=== PATIENT | female | born 2000 | race Caucasian/White ===

== ENCOUNTER 2022-12-20 14:29 | Emergency (ER) | payer OTHER, SELFPAY ==
[2022-12-20 14:44] VITALS: BP 138/82; PULSE 89; RESP 20; TEMP 36.7; O2SAT 18; BMI 23.5
[2022-12-20 15:13] LABS: Appearance Urine Clear (Clear); Bilirubin Urine Negative (Negative); Blood Urine Negative (Negative); Color Urine Yellow (Yellow); Glucose Urine 2+ (Negative); Ketones Urine Trace (Negative); Leukocyte Esterase Urine Negative (Negative); Nitrite Urine Negative (Negative); Protein Urine Negative (Negative); Specific Gravity Urine <= 1.005 (1.000-1.030); Urobilinogen Urine 0.2 (0.2-1.0)
[2022-12-20 15:34] LABS: RBC Urine 0-2 (0-2); WBC Urine 0-2 (0-5)
--- NOTE | 2022-12-20 16:04 | ED.GENADULT ---
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 Patient notes that in spite of multiple insulin boluses she has been experiencing blood sugars that have actually been rising and at last check was in the upper 400s. Along with this she is feeling somewhat fatigued and has some abdominal discomfort and nausea. She denies any vomiting. She has not been ill of late. She denies cough cold dysuria hematuria possibility of . She has not had fevers. She is due to change her insulin catheter tomorrow. She has not noticed any redness around the insertion site. Our Accu-Chek is similar. Patient does note that her insulin had been left outside. Perhaps questionable and environmental ir sun exposure. Related Data Home Medications Medication Instructions Recorded Confirmed glucagon 3 mg/actuation nasal mg intranasal 12/20/22 spray (Baqsimi) insulin lispro 100 unit/mL 1 sliding scale dose subcut 12/20/22 subcutaneous solution (Humalog U-100 Insulin) Allergies Allergy/AdvReac Type Severity Reaction Status Date / Time Sulfa (Sulfonamide Allergy Verified 12/20/22 14:51 Antibiotics) Review of Systems Status of ROS: Reports: 10 or more systems reviewed and unremarkable except as noted in History and below Const: Denies: fever, chills or change in weight Eyes: Denies: change in vision ENMT: Denies: throat pain or neck pain Cardio: Denies: chest pain, palpitations, swelling of feet/ankles, lightheadedness or shortness of breath with exertion Resp: Denies: shortness of breath, cough or wheezing GI: Reports: abdominal pain and nausea; Denies: vomiting or diarrhea : Denies: painful urination or urinary frequency Musculo: Denies: neck pain Integ/Breast: Denies: rash Neuro: Denies: headache or numbness in extremities Endo: Denies: excessive urination Allergy/Immuno: Denies: wheezing PFSH PFSH Social History Smoking Status: Never smoker Do you use any of these nicotine containing products: None How often do you have a drink containing alcohol: never AUDIT-C Alcohol total score: 0 Non-prescribed substance use: denies use Exam Narrative: Exam Narrative: Patient is alert and oriented. Very pleasant young woman. She does look fatigued but nontoxic in appearance. Eyes are clear. Oral cavity with moist mucous membranes neck without lymphadenopathy. Heart with a regular rate and rhythm. Lungs are clear bilaterally. Abdomen soft nontender. Lower extremities without edema. Moving all extremities. Const: Vital Signs, click to edit/add: Vital Signs - 24 hr 12/20/22 14:44 Temperature 98.1 F Pulse Rate [Pulse Oximeter] 89 Respiratory Rate 20 Blood Pressure [Ri ght Upper Arm] 138/82 Pulse Oximetry 18 L Oxygen Delivery Me thod Room Air Documenting provider has reviewed patient's vital signs: yes Course Course Hospital Course: Differential diagnosis includes DKA, insulin catheter malfunction, glucose monitor malfunction, infection. Patient will have CBC, comprehensive panel, urinalysis and immediate glucose check. Glucose check is elevated in the low 400s and patient notes her check is greater than 500 and thus will give 10 units regular insulin. As well as normal saline. Will have patient disconnect her insulin pump at this time as I am fearful that it is malfunctioning and will give a sudden bolus. She will obtain new catheter for insertion later this evening. Reevaluation(s) Reevaluation #1: Note vault lab glucose comes back at 296 and we with modified or order of regular insulin from 10 units to 6 units at this time. Reevaluation #2: Patient noted to have glucose dropped to 230. Will have her reinsert a new insulin catheter and monitor here for period of time. Reevaluation #3: Glucose drops to 125 and this is consistent both on her monitor as well as our Accu-Chek. She is given something to eat. We will continue to monitor to make sure that blood sugars are stable. Labs are reassuring. Vital Signs Vital signs: Initial Vital Signs Temperature 98.1 F 12/20/22 14:44 Temperature Source Temporal Artery Scan 12/20/22 14:44 Pulse Rate 89 12/20/22 14:44 Pulse Rhythm Regular 12/20/22 14:44 Respiratory Rate 20 05/01/23 14:44 Blood Pressure 138/82 12/20/22 14:44 Blood Pressure Mean 100 12/20/22 14:44 Blood Pressure Position Sitting 12/20/22 14:44 Pulse Oximetry 18 L 12/20/22 14:44 Oxygen Delivery Method Room Air 12/20/22 14:44 Vital Signs Temperature 98.1 F 12/20/22 14:44 Pulse Rate 89 12/20/22 14:44 Respiratory Rate 20 12/20/22 14:44 Blood Pressure 138/82 12/20/22 14:44 Pulse Oximetry 18 L 12/20/22 14:44 Oxygen Delivery Method Room Air 12/20/22 14:44 Temperature 98.1 F 12/20/22 14:44 Pulse Rate 89 12/20/22 14:44 Respiratory Rate 16 12/20/22 19:34 Blood Pressure 101/67 12/20/22 19:34 Pulse Oximetry 18 L 12/20/22 14:44 Oxygen Delivery Method Room Air 12/20/22 14:44 Medical Decision Making MDM Narrative Medical decision making narrative: 1. Hyperglycemia-I am unsure if this is a malfunction of the insulin catheter verses insulin that was left out and separate environmental effects. Fortunately although patient had 2+ ketones no evidence of abnormal labs. She is feeling better at this time and we have monitored her and insulin pump and glucose monitor appear to be working correctly at this time. She is ready to go home. Would ask her to continue to monitor closely and of course return for any worsening symptoms. Would have her use a new batch of insulin as well. 2. Disposition-home. Return as needed for worsening symptoms. Dictation done with voice recognition, and as a result, wrong word or venuh-y-oewd substitutions may have occurred.? There may be errors in the script that have gone undetected.? Please consider this when interpreting information found in this chart. Medical Records Medical records reviewed: Yes I reviewed the patient's medical records Lab Data Lab results reviewed: Yes I reviewed the patient's lab results Labs: Lab Results 12/20/22 12/20/22 Range/Units 15:00 16:40 WBC 8.55 (4.50-11.00) K/uL RBC 4.05 (4.00-5.20) m/uL Hgb 12.6 (12.0-16.0) gm/dL Hct 37.4 (33.0-51.0) % MCV 92 (80-100) fL MCH 31 (26-34) pg MCHC 34 (32-36) gm/dL RDW Coeff of Shai 12.5 (11.5-15.5) % Plt Count 194 (140-440) K/uL Neut % (Auto) 71.6 (42.0-72.0) % Lymph % (Auto) 19.3 L (20-44) % Roberts % (Auto) 7.4 (0.0-11.0) % Eos % (Auto) 1.2 (0.0-7.0) % Baso % (Auto) 0.4 (0.0-3.0) % Neut # (Auto) 6.13 (1.7-7.0) K/uL Lymph # (Auto) 1.70 (0.90-2.90) K/uL Roberts # (Auto) 0.60 (0.00-0.90) K/UL Eos # (Auto) 0.10 (0.00-0.50) K/uL Baso # (Auto) 0.03 (0.00-0.30) K/uL Sodium 135 (135-149) mmol/L Potassium 4.4 (3.6-5.1) mmol/L Chloride 101 (96-114) mmol/L Carbon Dioxide 27 (20-32) mmol/L BUN 20 (5-24) mg/dL Creatinine 0.6 (0.5-1.5) mg/dL Estimated Creat Clear 129.15 Estimated GFR 132 ml/min Glucose 296 H (60-115) mg/dL Calcium 9.2 (8.4-10.6) mg/dL Total Bilirubin 0.5 (0.1-1.5) mg/dL AST 41 H (12-35) U/L ALT 31 (4-35) U/L Alkaline Phosphatase 57 (40-150) U/L Total Protein 7.5 (6.0-8.3) g/dL Albumin 4.7 (3.3-5.0) g/dL Urine Color Yellow (Yellow) Urine Appearance Clear (Clear) Urine pH 6.0 (5.0-8.5) Ur Specific [place] <= 1.005 (1.000-1.030) Urine Protein Negative (Negative) Urine Glucose (UA) 2+ A (Negative) Urine Ketones Trace A (Negative) Urine Blood Negative (Negative) Urine Nitrite Negative (Negative) Urine Bilirubin Negative (Negative) Urine Urobilinogen 0.2 (0.2-1.0) Ur Leukocyte Esterase Negative (Negative) Urine RBC 0-2 (0-2) Urine WBC 0-2 (0-5) Ur Squamous Epith Cells None (None-Few) Urine Bacteria None (None) Discharge Plan Discharge Clinical Impression: Hyperglycemia Patient Disposition: Home, Self-Care Condition: Improved Instructions: Diabetic Hyperglycemia (ED) Additional Instructions: Continue to monitor blood sugars. Return for worsening symptoms. Suggest use of new insulin as warmth and sunlight can break insulin down. Prescriptions: No Action Baqsimi 3 mg/actuation spray,non-aerosol INTRANASAL Patient Comments: [NO ORIGINAL SIG] insulin lispro [Humalog U-100 Insulin] 100 unit/mL solution 1 sliding scale dose subcut Follow Up/Referrals: Provider,Not a Local [Primary Care Provider] - Stand Alone Forms: MyHealth Info Instructions
--- OUTSIDE RECORDS SUMMARY | 2022-12-20 16:32 | XMS_ITS | Continuity of Care Document ---
Author Name Unknown Address [address] [place] [address] Phone Organization [facility] Address [address] [place] [address] Phone Support Name Relationship Address Phone MD Lewis Lao Attending Provider [address] [place] [address] MD Claudia Murray Primary Care Provider [address] [place] [phone] Chief Complaint and Reason for Visit Chief Complaint Right Knee LMT Allergies, Adverse Reactions, Alerts Allergen Type Severity Reaction Last Updated Verified Status Sulfa (Sulfonamide Antibiotics) Allergy Moderate Rash March 11, 2022 10:33am Yes Active Social History Smoking Status Status Start Date End Date Date of Observa tion Unknown if ever smoked March 11, 2022 10:19am Observation Status Date of Observation Not March 11, 2022 Observation Status Observation Response Date of Response Is pt a current\former smoke r or user of tobacco products? No March 11, 2022 10:19am Does the patient use drugs? No March 16, 2022 6:36am On average how many days per week do you drink alcohol? 0 March 16, 2022 6:36am Additional Data Assigned Sex Female Medications Medication Status Dose Units Route Directions Qty Days St art Date End Date Instructions Insulin Aspart U-100 (Novolog U-100 Insulin Aspart) 100 unit/mL solution Active sliding scale dose SUB-Q Use as Directed March 11, 2022 12:00a m Blood-Gluco se Sensor (Dexcom G6 Sensor) device Active EACH MISCELLANE March 11, 2022 12:00a m Blood Sugar Diagnostic (Onetouch Verio Test Strips) strip Active STRIP MISCELLANE March 11, 2022 12:00a m Insulin Pump Cart,Cont Bt-Cntr (Omnipod Dash Intro Kit (Gen 4)) Cartridge Active EACH SUB-Q March 11, 2022 12:00a m Tramadol Active 50 MG PO Q6H 15 March 15, 2022 12:00a m Procedures Procedure Date Performed Status Knee Arthroscopy (Right) March 16, 2022 2:25pm completed Relevant Diagnostic Tests and/or Laboratory Data Laboratory Results Test Date/Time Result Interpretation Reference Range Result Comment Performing Site Bedside Glucose March 16, 2022 8:58am 184 mg/dL 75-[address] [address] Vital Signs Vital Reading Result Reference Range Collection Date/Time Height 64 [in_i] March 11, 2022 10:30am Weight 61.30 kg March 11, 2022 10:30am Body Temperature 98.0 [degF] 97.5-99.3 March 16, 2022 10:00am Heart Rate 55 /min 60-90 March 16, 2022 10:40am Respiratory rate 16 /min 12-20 March 16, 2022 10:40am Oxygen saturation by Pulse oximetry 100 % 95-100 March 16, 2022 10:4 0am BP Systolic 115 mm[Hg] 100-160 March 16, 2022 10:40am BP Diastolic 62 mm[Hg] 60-90 March 16, 2022 10:40am Inhaled oxygen flow rate 3 L/min Feb 9:40am Advance Directives Advance Directive Response Recorded Date/ Time Does the patient have a Healthcare Proxy? No March 04, 2022 5:43pm Date Patient Queried 03/04/22 March 04, 2022 5:43pm Does pt. have a legal guardian? No March 04, 2022 4:15pm Date patient queried 03/04/22 March 04, 2022 4:15pm Insurance Providers Guarantor Ree Young Address [address] [place] [address] Contact Info. Home Phone: Payer Policy Id Coverage Id Subscriber's Name Subscriber Id Effective Date Expiration Date Triston GALINDO [id number] Donaldo Rea [id number] 2014 [employer] HMO POS [id number] Donaldo Rea [id number] Encounters Encounter Location(s) Arrival/Admit Date Discharge/Depart Date Provider([facility]) [facility] March 16, 2022 6:09am March 16, 2022 10:55am Lewis Lao MD Plan of Treatment Future Tests Future scheduled test information is unavailable Pending Tests Pending diagnostic test information is unavailable Future Visits Future appointment information is unavailable Referrals to Other Providers Reason for Referral Referral Start Date Provider Provider Contact Information Provider Address Claudia Murray Work Phone: [address] [place] [address] Future Procedures Procedure Name Scheduled Date Pre-Op Antibiotic Arthroscopy March 16, 2022 6:00am Consult to Physical Therapy March 16 7:24am Future Medications Future medication information is unavailable Patient Instructions [facility]: Anesthesia Post-Op erative Instructions [facility]: Crutches-Weight Bearing as Tolerated Goals Acute Goals Prepare patient for surgery * Verify required physcial preparations have been accomplished * Verify required procedures/tests have been completed * Verify required clinical documentation is available for review Report pain at tolerable lev el * Uses pain scale appropriately * Identify options for pain control - Analgesics - Narcotics - Non-medication measures Patient Participates in Care Decisions The patient participates in decisions affecting his/her plan of care. Demonstrates knowledge of pr ocedure The patient demonstrates knowledge of psychological and physiological responses to invasive procedure Patient is free from s/s of aquired inj The patient is free from signs and symptoms of acquired physican injury Patient is free from s/s of infection The patient is free from signs and symptoms of infection Patient returns to normother loulou The patient is at or returning to normothermia at the conclusion of the immediate postoperative period Patient receives tx for DVT The patient receives appropriate treatment for the prevention of DVT Patient is free from injury related to s The patient is free from injury related to care and handling of surgical specimens The pt's right to privacy is maintaned The patient's right to privacy is maintained General Surgery Discharge Ou tcomes Hospital Discharge Instructions Additional Instructions Lewis Lao MD [facility] [address] [place] [address] Tel. [phone] DISCHARGE INSTRUCTIONS for Patients Following Knee Arthroscopy 1. Call Dr. Lao???s office at [phone] to make a follow up appointment for 7-10 days from date of surgery. 2. Call Dr. Lao???s office for any questions or concerns. If Dr. Lao is not available, you will be put in touch with the surgeon building construction estimator. If you feel it is an emergency, go directly to the [facility] Emergency Room (ER) and they will make the appropriate contacts. 3. Watch for an elevated temperature of 101?? or higher, excessive bleeding or drainage from the wounds, numbness or tingling in the operative leg or persistent calf pain. Report this to Dr. Lao???s office for further instructions. 4. Keep wounds dry. A small amount of blood staining on the dressing is normal. Keep lacey wrap in place for two days (re-wrap twice daily). After two days, remove dressing and apply Band-Aids to wounds. You may have tapes on wounds instead of stitches do not remove these. You may shower after two days if no drainage from wounds. You may tub bathe after stitches are removed if present, or after one week. 5. Weight bearing status will be determined based on procedure performed. You will be instructed prior to discharge. 6. Take one aspirin daily unless you have ulcers or other sensitivity to this medication (i.e. aspirin allergy). 7. Use pain medication sparingly. It will work more effectively this way as your body will rapidly build up a tolerance to it. 8. Qualified persons may operate a motor vehicle when you can walk comfortably without crutches. 9. Apply ice to knee 20-30 minutes on then off for 30-60 minutes while awake (for two days). Elevate affected leg on 1-2 pillows as much as possible for the first two days. You may bend and straighten knee within the limits of comfort. Tighten thigh muscles and hold for 10 seconds - 10 times per hour. Ankle pumps 10 times per hour. You may have been prescribed an opioid as part of your pain treatment, which may be used following injury, surgery, or other health conditions. For your safety, DO NOT drive, ride a bike, swim unattended, or operate machinery, including power tools while on these medications.
--- OUTSIDE RECORDS SUMMARY | 2022-12-20 16:32 | XMS_ITS | Summary of Care ---
Author Name Unknown [facility] Address [address] [place] [address]- Phone [phone] Care Team Providers Care Adult Manager Name Role Phone RANDELL OZUNA MD Primary Care Physician ( [phone] Encounter CHB_CSN [id number] Date(s): 08/06/22 - 07/28/[address] [facility] [place] [address] [place] [address]- [phone] Attending Physician: BRAD MCCLOUD MD Referring Physician: RANDELL OZUNA MD Allergies, Adverse Reactions, Alerts Substance Reaction Severity Status sulfa drugs Swelling Moderate Active Medications Baqsimi Two Pack 3 mg nasal powder Dose: 3 mg, Nasal, 1time, Special Instructions: as needed for severe or unresponsive hypoglycemia.,Dispense Quantity: 3 EA, Refills: 3, Entered: 07/02/22 10:40:00 EST, [facility]) Start Date: 07/02/22 Status: Ordered DME Omnipod 5 G6 Pods (Gen 5) [facility] #: [id number] DME Omnipod 5 G6 Pods (Gen 5) [facility] #: [id number] Special Instructions: Use one and change every 72 hours. Dispense Quantity: 30 EA Refills: 3 See Instructions Start Date: 06/28/22 Status: Ordered HumaLOG 100 units/mL injectable solution See Instructions, Special Instructions: use as directed with insulin pump therapy up to 100 units per day, Dispense Quantity: 90 mL, Refills: 3, Entered: 06/30/22 16:08:00 EST, [facility] ([facility]) Start Date: 06/30/22 Status: Ordered Problem List Condition Effective Dates Status Health Status Inform ant Celiac disease(Confirmed) Active Type I diabetes mellitus uncontrolled(Confirmed) 1 Active 1Added by C
--- OUTSIDE RECORDS SUMMARY | 2022-12-20 16:32 | XMS_ITS | Summary of Care ---
Author Name Unknown Organization [facility] ([facility]icine) Address [id number] [place] [address] Encounter CHB_CSN [id number] Date(s): 05/29/20 - 05/29/20 [facility] (Medicine) [id number] [place] [address] [facility] Discharge Disposition: Discharge Attending Physician: BRAD MCCLOUD MD Referring Physician: KRUPA CASTRO MD Allergies, Adverse Reactions, Alerts Substance Reaction Severity Status sulfa drugs Swelling Moderate Active Problem List Condition Effective Dates Status Health Status Inform ant Celiac disease(Confirmed) Active Type I diabetes mellitus uncontrolled(Confirmed) 1 Active 1Added by [facility]
--- OUTSIDE RECORDS SUMMARY | 2022-12-20 16:32 | XMS_ITS | Summary of Care ---
Author Name Unknown Organization [facility] Address [address] [place] [address]- Care Team Providers Care Street Sprinkler Name Role Phone KRUPA CASTRO MD Primary Care Physician Encounter CHB_CSN [id number] Date(s): 03/26/21 - 03/26/[address] [address]- Encounter Diagnosis Type 1 diabetes mellitus with hyperglycemia(Final) - Discharge Disposition: Discharge Attending Physician: BRAD MCCLOUD MD Referring Physician: KRUPA CASTRO MD Allergies, Adverse Reactions, Alerts Substance Reaction Severity Status sulfa drugs Swelling Moderate Active Problem List Condition Effective Dates Status Health Status Inform ant Celiac disease(Confirmed) Active Type I diabetes mellitus uncontrolled(Confirmed) 1 Active 1Added by [facility]
--- OUTSIDE RECORDS SUMMARY | 2022-12-20 16:32 | XMS_ITS | Summary of Care ---
Author Name Unknown [facility] Address [id number] [place] [address] Care Team Providers Care Business Account Manager Name Role Phone KRUPA CASTRO MD Primary Care Physician Encounter CHB_CSN [id number] Date(s): 01/22/21 - 01/22/21 [facility] [id number] [place] [address] Discharge Disposition: Discharge Attending Physician: BRAD MCCLOUD MD Referring Physician: KRUPA CASTRO MD Allergies, Adverse Reactions, Alerts Substance Reaction Severity Status sulfa drugs Swelling Moderate Active Medications DME - Precision Xtra Blood KETONE Test Strips DME - Precision Xtra Blood KETONE Test Strips Special Instructions: Use as directed when BG >250mg/dL upon arising in the AM and when >300 mg/dL any other time of day and when doing sick day management. Dispense Quantity: 30 EA Refills: 11 Stop: 01/20... Start Date: 01/22/21 Stop Date: 01/30/21 Status: Ordered Problem List Condition Effective Dates Status Health Status Inform ant Celiac disease(Confirmed) Active Type I diabetes mellitus uncontrolled(Confirmed) 1 Active 1Added by [facility]
--- OUTSIDE RECORDS SUMMARY | 2022-12-20 16:32 | XMS_ITS | Summary of Care ---
Author Name Unknown Organization [facility] Address [address] [place] [address]- Encounter CHB_CSN [id number] Date(s): 02/27/20 - 02/27/20 [facility] [address] [place] [address]- [facility] Discharge Disposition: Discharge Attending Physician: MACY MODI NP Referring Physician: BRAD MCCLOUD MD Allergies, Adverse Reactions, Alerts Substance Reaction Severity Status sulfa drugs Swelling Moderate Active Problem List Condition Effective Dates Status Health Status Inform ant Celiac disease(Confirmed) Active Type I diabetes mellitus uncontrolled(Confirmed) 1 Active 1Added by [facility]
--- OUTSIDE RECORDS SUMMARY | 2022-12-20 16:32 | XMS_ITS | Summary of Care ---
Author Name Unknown Organization [facility] Address [address] [place] [address]- Care Team Providers Care Trials Manager Name Role Phone GLORIA SCHMIDT, KRUPA Lilly Primary Care Physician Encounter CHB_CSN [id number] Date(s): 01/21/21 - 01/21/[address] [address]- Discharge Disposition: Discharge Attending Physician: BRAD MCCLOUD MD Referring Physician: BRAD MCCLOUD MD Allergies, Adverse Reactions, Alerts Substance Reaction Severity Status sulfa drugs Swelling Moderate Active Problem List Condition Effective Dates Status Health Status Inform ant Celiac disease(Confirmed) Active Type I diabetes mellitus uncontrolled(Confirmed) 1 Active 1Added by [facility]
--- OUTSIDE RECORDS SUMMARY | 2022-12-20 16:32 | XMS_ITS | Summary of Care ---
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 [address] [place] [address]- [phone] Encounter Diagnosis Type 1 diabetes mellitus with hyperglycemia(Final) - Discharge Disposition: Discharge Attending Physician: BRAD MCCLOUD MD Referring Physician: RANDELL OZUNA MD Allergies, Adverse Reactions, Alerts Substance Reaction Severity Status sulfa drugs Swelling Moderate Active Medications Baqsimi Two Pack 3 mg nasal powder Dose: 3 mg, Nasal, 1time, Special Instructions: as needed for severe or unresponsive hypoglycemia.,Dispense Quantity: 1 EA, Refills: 11, Entered: 03/25/22 9:08:00 EDT, [facility] Start Date: 03/25/22 Status: Ordered DME - DEXCOM G6 Sensor 3 pack DME - DEXCOM G6 Sensor 3 pack Special Instructions: Replace 1 sensor every 10 days for continuous glucose monitoring. [facility] [id number] Dispense Quantity: 9 EA Refills: 3 Stop: 04/02/22 23:59:00 EDT Dispense as Written See Instructions Start Date: 03/25/22 Stop Date: 04/02/22 Status: Ordered DME - DEXCOM G6 Transmitter DME - DEXCOM G6 Transmitter Special Instructions: Change every 3 months as directed. [facility] [id number] Dispense Quantity: 1 EA Refills: 3 Stop: 04/02/22 23:59:00 EDT Dispense as Written See Instructions Start Date: 03/25/22 Stop Date: 04/02/22 Status: Ordered DME - Precision Xtra Blood KETONE Test Strips DME - Precision Xtra Blood KETONE Test Strips Special Instructions: Use as directed when BG >250mg/dL upon arising in the AM and when >300 mg/dL any other time of day and when doing sick day management. Dispense Quantity: 30 EA Refills: 3 Stop: 04/02... Start Date: 03/25/22 Stop Date: 04/02/22 Status: Ordered Lantus 100 units/mL subcutaneous solution See Instructions, Special Instructions: Use as directed up to 50 units per day in the event of pumpfailure, Dispense Quantity: 10 mL, Refills: 3, Entered: 03/25/22 9:10:00 EDT, [facility] Start Date: 03/25/22 Status: Ordered NovoLOG 100 units/mL injectable solution See Instructions, Special Instructions: use as directed up to 100 units SC daily, Dispense Quantity: 90 mL, Refills: 3, Entered: 03/25/22 9:08:00 EDT, Dispense as Written, [facility] Start Date: 03/25/22 Status: Ordered Problem List Condition Effective Dates Status Health Status Inform ant Celiac disease(Confirmed) Active Type I diabetes mellitus uncontrolled(Confirmed) 1 Active 1Added by [facility]
--- OUTSIDE RECORDS SUMMARY | 2022-12-20 16:32 | XMS_ITS | Summary of Care ---
Author Name Unknown Organization [facility] ([facility]) Address [id number] [place] [address] Care Team Providers Care Test Deskman Name Role Phone KRUPA CASTRO MD Primary Care Physician [phone] Encounter CHB_CSN [id number] Date(s): 03/20/21 - 03/20/21 [facility]) [id number] [place] [address] Encounter Diagnosis Type 1 diabetes mellitus with hyperglycemia(Final) - Discharge Disposition: Discharge Attending Physician: MACY MODI NP Referring Physician: KRUPA CASTRO MD Allergies, Adverse Reactions, Alerts Substance Reaction Severity Status sulfa drugs Swelling Moderate Active Problem List Condition Effective Dates Status Health Status Inform ant Celiac disease(Confirmed) Active Type I diabetes mellitus uncontrolled(Confirmed) 1 Active 1Added by [facility]
[2022-12-20 16:53] LABS: Basophils Absolute Auto 0.03 K/uL (0.00-0.30); Basophils Percent Auto 0.4 % (0.0-3.0); Eosinophils Percent Auto 1.2 % (0.0-7.0); Hematocrit 37.4 % (33.0-51.0); Hemoglobin* 12.6 gm/dL (12.0-16.0); Immature Granulocytes Abs Auto 0.01 K/uL (0.00-0.30); Immature Granulocytes Pct Auto 0.1 %; Lymphocytes Percent Auto 19.3 % (20-44); Mean Corpuscular HGB Conc 34 gm/dL (32-36); Mean Corpuscular Hemoglobin 31 pg (26-34); Mean Corpuscular Volume 92 fL (80-100); Monocytes Percent Auto 7.4 % (0.0-11.0); Neutrophils Absolute Auto 6.13 K/uL (1.7-7.0); Neutrophils Percent Auto 71.6 % (42.0-72.0); Platelet Count* 194 K/uL (140-440); RDW Coefficient of Variation % 12.5 % (11.5-15.5); Red Blood Count 4.05 m/uL (4.00-5.20); White Blood Count* 8.55 K/uL (4.50-11.00)
[2022-12-20] MEDS: 0.9 % SODIUM CHLORIDE 1000 ml 1,000 ML IV (16:54)
--- NOTE | 2022-12-20 17:05 | ED.NURSE ---
Blood sugar is 268 at 5:05 pm
[2022-12-20 17:15] LABS: Albumin* 4.7 g/dL (3.3-5.0); Chloride* 101 mmol/L (96-114); Sodium* 135 mmol/L (135-149)
[2022-12-20 17:16] LABS: Potassium* 4.4 mmol/L (3.6-5.1)
[2022-12-20 17:18] LABS: Alanine Aminotransferase* 31 U/L (4-35); Alkaline Phosphatase* 57 U/L (40-150); Aspartate Amino Transferase* 41 U/L (12-35); Bilirubin Total* 0.5 mg/dL (0.1-1.5); Blood Urea Nitrogen* 20 mg/dL (5-24); Carbon Dioxide* 27 mmol/L (20-32); Creatinine* 0.6 mg/dL (0.5-1.5); Est. Creatinine Clearance* 129.15; Estimated Glomerular Filt Rate 132 ml/min; Total Protein* 7.5 g/dL (6.0-8.3)
[2022-12-20 17:19] LABS: Calcium* 9.2 mg/dL (8.4-10.6); Glucose* 296 mg/dL (60-115)
[2022-12-20 17:49] LABS: Slide Review Reflex No
--- NOTE | 2022-12-20 18:33 | ED.NURSE ---
Blood sugar 230
[2022-12-20 19:34] VITALS: BP 101/67; RESP 16
== END 2022-12-20 19:44 | disposition home or self-care (01) ==
PROVIDERS: Emergency Provider Family Medicine
DX: E10.65 Type 1 diabetes mellitus with hyperglycemia (principal); Z96.41 Presence of insulin pump (external) (internal)
CPT/HCPCS: 36415; 80053; 81001; 82962; 85025; 96360; 99284; J7030